=== PATIENT | male | born 1990 | race American Indian/Alaskan Native ===

== ENCOUNTER 2017-09-04 17:19 | Emergency (ER) | payer SELFPAY ==
[2017-09-04 18:05] VITALS: BP 157/91
[2017-09-04] MEDS ORDERED: SUBLIMAZE IV ONE (18:20)
[2017-09-04] MEDS ORDERED: NORCO 7.5/325 PO ONE (18:48)
--- NOTE | 2017-09-04 19:59 | Emergency Department Report ---
ED General Adult HPI - General Chief complaint: Back Pain/Injury Stated complaint: RIGHT SIDE PAIN Time Seen by Provider: 09/04/17 18:20 Source: patient Mode of arrival: Ambulatory Limitations: No Limitations - History of Present Illness Initial comments: Patient is a 27-year-old male with past medical history who presents with right- sided chest pain that has been going on since yesterday. Patient's pain is a 7 out of 10 is an achy type of pain that radiates to his back. He states that the pain occurred after he was working out. He states that the pain is similar to a pulled muscle. He hasn't tried any OTC meds for his pain. Severity scale (0 -10): 5 - Related Data Previous Rx's Medication Instructions Recorded Last Taken Type Acetaminophen 1,000 mg PO Q6H PRN #60 tablet 09/04/17 Unknown Rx Diclofenac Sodium [Voltaren] 100 gm TP Q6H PRN #1 gel..gram. 09/04/17 Unknown Rx Allergies Allergy/AdvReac Type Severity Reaction Status Date / Time amoxicillin Allergy Unknown Verified 09/04/17 18:06 ED Review of Systems ROS: Stated complaint: RIGHT SIDE PAIN Other details as noted in HPI Constitutional: denies: chills, fever Eyes: denies: eye pain, eye discharge, vision change ENT: denies: ear pain, throat pain Respiratory: denies: cough, shortness of breath, wheezing Cardiovascular: chest pain. denies: palpitations Endocrine: no symptoms reported Gastrointestinal: denies: abdominal pain, nausea, diarrhea Genitourinary: denies: urgency, dysuria Musculoskeletal: denies: back pain, joint swelling, arthralgia Skin: denies: rash, lesions Neurological: denies: headache, weakness, paresthesias Psychiatric: denies: anxiety, depression Hematological/Lymphatic: denies: easy bleeding, easy bruising ED Past Medical Hx - Past Medical History Previous Medical History?: No - Surgical History Past Surgical History?: No Additional Surgical History: left groin inguinal hernia - Social History Smoking Status: Never Smoker Substance Use Type: None - Medications Home Medications: Home Medications Medication Instructions Recorded Confirmed Last Taken Type Acetaminophen 1,000 mg PO Q6H PRN #60 tablet 09/04/17 Unknown Rx Diclofenac Sodium [Voltaren] 100 gm TP Q6H PRN #1 gel..gram. 09/04/17 Unknown Rx ED Physical Exam - General Limitations: No Limitations General appearance: alert, in no apparent distress - Head Head exam: Present: atraumatic, normocephalic - Eye Eye exam: Present: normal appearance - ENT ENT exam: Present: mucous membranes moist - Neck Neck exam: Present: normal inspection - Respiratory Respiratory exam: Present: normal lung sounds bilaterally. Absent: respiratory distress - Cardiovascular Cardiovascular Exam: Present: regular rate, normal rhythm. Absent: systolic murmur, diastolic murmur, rubs, gallop - GI/Abdominal GI/Abdominal exam: Present: soft, normal bowel sounds - Rectal Rectal exam: Present: deferred - Extremities Exam Extremities exam: Present: normal inspection - Back Exam Back exam: Present: normal inspection - Neurological Exam Neurological exam: Present: alert, oriented X3 - Psychiatric Psychiatric exam: Present: normal affect, normal mood - Skin Skin exam: Present: warm, dry, intact, normal color. Absent: rash ED Course Vital Signs 09/04/17 18:00 Temperature 98.8 F Pulse Rate 84 Respiratory 18 Rate Blood Pressure 157/91 O2 Sat by Pulse 98 Oximetry - Reevaluation(s) Reevaluation #1: 09/04/17 20:04 Patient is feeling better after oral pain medications. ED Medical Decision Making - EKG Data -: EKG Interpreted by Me - EKG Data 09/04/17 20:07 EKG shows normal sinus rhythm no T-wave inversion normal axis signs of benign early repolarization - Radiology Data Radiology results: image reviewed Chest xray: shows no acute cardiopulmonary disease. - Medical Decision Making Cdx: Pulled chest wall muscle ddx: PTX, NSTEMI I will get blood work, chest xray and ekg. Patient refused blood work stating that " I don't need all of that." Indicated the risks of not getting blood work. Such as not evaluating for NSTEMI and possible . Patient agrees with not getting blood work. Additional verbal discharge instructions were given. Patient agrees with discharge Critical care attestation.: If time is entered above; I have spent that time in minutes in the direct care of this critically ill patient, excluding procedure time. ED Disposition Clinical Impression: Chest wall pain Disposition: DC-01 TO HOME OR SELFCARE Is pt being admited?: No Does the pt Need Aspirin: No Condition: Stable Instructions: Chest Pain (ED) Prescriptions: Acetaminophen 1,000 mg PO Q6H PRN #60 tablet PRN Reason: Pain Diclofenac Sodium [Voltaren] 100 gm TP Q6H PRN #1 gel..gram. PRN Reason: Pain Referrals: BANDAR CALL MD [Staff Physician] - 3-5 Days
--- NOTE | 2017-09-04 20:02 | XRay Report ---
FINAL REPORT EXAM: XR CHEST ROUTINE 2V HISTORY: chest pain TECHNIQUE: Frontal and lateral views of the chest. PRIORS: None currently available. FINDINGS: Cardiac silhouette is within normal limits. There is no effusion. There is no pneumothorax. There is no consolidation. There are no suspicious osseous lesions. IMPRESSION: No acute cardiopulmonary findings.
== END 2017-09-04 20:26 | disposition home or self-care (01) ==
LOC: ED 17:19
DX: R07.89 Other chest pain (principal); Z88.1 Allergy status to other antibiotic agents
CPT/HCPCS: 71046; 93005; 93010